=== PATIENT | male | born 1970 | race Caucasian/White ===

== ENCOUNTER 2021-11-19 02:28 | Emergency (ER) | payer OTHER, MEDICAID ==
[2021-11-19] MEDS ORDERED: NS + KCl 20mEq/L 1,000 ML IV SCH (03:15)
[2021-11-19] MEDS: Potassium Chloride 20 MEQ Tab.ER PO SCH ×2 (07:52→09:26)
[2021-11-19] MEDS ORDERED: Ondansetron 4 MG/2 ML SDV IVPUSH STA (09:47)
== END 2021-11-19 10:57 | disposition home or self-care (01) ==
LOC: FB.ED 02:28
DX: T14.8XXA Other injury of unspecified body region, initial encounter (principal); E87.6 Hypokalemia; F10.20 Alcohol dependence, uncomplicated; D50.9 Iron deficiency anemia, unspecified; V89.2XXA Person injured in unspecified motor-vehicle accident, traffic, initial encounter; Y92.410 Unspecified street and highway as the place of occurrence of the external cause
CPT/HCPCS: 36415; 70450; 72125; 80053; 80307; 85025; 96365; 96366; 99283; 99285-25; A9270-GY; J3480